=== PATIENT | female | born 2000 | race Hispanic/Latino ===

== ENCOUNTER → 2023-07-15 | Outpatient (CLI) | payer OTHER | LOC: M LAB 16:05 | PROVIDERS: ATTEND Physician Assistant Medical | DX: Z34.91 Encounter for supervision of normal pregnancy, unspecified, first trimester (principal) ==

== ENCOUNTER 2023-10-31 16:52 | Emergency (ER) | payer OTHER ==
[~2023-10-31] VITALS: Ht 165.1 cm; Wt 104.0 kg
[2023-10-31] MEDS ORDERED: NS 1,000 ML IV ONE (18:50)
[2023-10-31 20:26] LABS: BASO % 0.2 % (0.0-1.0); EOS # 0.3 10^3/uL (0.0-0.5); EOS % 2.2 % (0.0-3.0); HEMATOCRIT 41.7 % (36.0-47.0); HEMOGLOBIN 14.1 g/dl (12.0-15.5); LYMPH # 3.9 10^3/uL (1.5-5.0); MEAN CORPUSCULAR HEMOGLOBIN 30.5 pg (27.0-33.0); MEAN CORPUSCULAR HGB CONC 33.8 g/dl (32.0-36.5); MEAN CORPUSCULAR VOLUME 90.3 fl (80.0-96.0); MONO # 0.8 10^3/uL (0.0-0.8); MONO % 6.1 % (2.0-8.0); NEUTROPHILS # 7.5 10^3/uL (1.5-8.5); NEUTROPHILS % 60.3 % (36.0-66.0); PLATELET COUNT, AUTOMATED 394 10^3/uL (150-450); RED BLOOD COUNT 4.62 10^6/uL (4.00-5.40); WHITE BLOOD COUNT 12.4 10^3/uL (4.0-10.0)
[2023-10-31 21:00] LABS: BLOOD UREA NITROGEN 10 MG/DL (9-23); CREATININE FOR GFR 0.47 MG/DL (0.55-1.30); GLUCOSE, FASTING 76 MG/DL (60-100)
[2023-10-31 21:01] LABS: CALCIUM LEVEL 9.1 MG/DL (8.5-10.1); CARBON DIOXIDE LEVEL 25 MMOL/L (20-31); CHLORIDE LEVEL 105 MMOL/L (98-107); GLOMERULAR FILTRATION RATE > 60.0 (>60); POTASSIUM SERUM 4.6 MMOL/L (3.5-5.1); SODIUM LEVEL 137 MMOL/L (136-145)
[2023-10-31 21:14] LABS: HCG, SERUM QUANTITATIVE 77393.6 MIU/ML (<4.2)
[2023-10-31 21:52] LABS: CHLAMYDIA DNA AMPLIFICATION NEGATIVE (NEGATIVE); GC DNA AMPLIFICATION NEGATIVE (NEGATIVE)
[2023-11-01] MEDS ORDERED: METR-265 PO (00:28)
[2023-11-01] MEDS ORDERED: metroNIDAZOLE (FLAGYL) 500MG TABLET PO ONE (00:30)
[2023-11-01 00:53] VITALS: BP 126/72; TEMP 97.9; O2SAT 99
== END 2023-11-01 00:56 | disposition home or self-care (01) ==
LOC: M ED 16:52
DX: O23.591 Infection of other part of genital tract in pregnancy, first trimester (principal); N76.0 Acute vaginitis; J45.909 Unspecified asthma, uncomplicated; K21.9 Gastro-esophageal reflux disease without esophagitis; Z79.899 Other long term (current) drug therapy; Z79.2 Long term (current) use of antibiotics; Z98.84 Bariatric surgery status; Z3A.08 8 weeks gestation of pregnancy

== ENCOUNTER 2024-05-06 14:20 | Emergency (ER) | payer OTHER ==
[~2024-05-06] VITALS: Ht 165.1 cm; Wt 97.8 kg
[~2024-05-06 14:20] MED LIST: METR-265 PO
[2024-05-06 14:22] VITALS: BP 126/67; TEMP 97.3; O2SAT 100
[2024-05-06] MEDS ORDERED: OMEP-173 PO (14:49)
== END 2024-05-06 16:55 | disposition left against medical advice (07) ==
LOC: M ED 14:20
DX: Z53.21 Procedure and treatment not carried out due to patient leaving prior to being seen by health care provider (principal)